=== PATIENT | female | born 1980 | race African-American/Black ===

== ENCOUNTER 2016-09-13 20:19 | Emergency (ER) | payer OTHER ==
[~2016-09-13] VITALS: Ht 172.7 cm; Wt 77.1 kg
[2016-09-13 20:26] VITALS: BP 123/76
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
[2016-09-13] MEDS ORDERED: NAPROSYN500 M1 PO (21:02)
[2016-09-13] MEDS ORDERED: ROBAXIN500 M1 PO (21:02)
== END 2016-09-13 21:12 ==
LOC: ERH 20:19
DX: S29.9XXA Unspecified injury of thorax, initial encounter (principal); V49.40XA Driver injured in collision with unspecified motor vehicles in traffic accident, initial encounter; Y92.410 Unspecified street and highway as the place of occurrence of the external cause
CPT/HCPCS: 96372; J1885